=== PATIENT | male | born 1975 | race Caucasian/White ===

== ENCOUNTER 2017-04-10 10:13 | Emergency (ER) | payer OTHER ==
[2017-04-10 10:17] VITALS: BP 132/88; PULSE 74; RESP 16; TEMP 98.6; O2SAT 96
[2017-04-10 11:43] LABS: % IMMATURE GRANULYOCYTES 0.5 % (0.0-1.1); ABSOLUTE IMMATURE GRANULOCYTES 0.06 10^3/uL (0.00-0.10); ADD DIFF? NO; ADD MORPH? NO; ADD SCAN? NO; ATYPICAL LYMPHOCYTE FLAG 0 (0-99); FRAGMENT RBC FLAG 0 (0-99); HEMATOCRIT 47.1 % (40.0-51.0); HEMOGLOBIN 16.1 g/dL (13.7-17.5); LEFT SHIFT FLG 0 (0-99); LIPEMIA HEMOLYSIS FLAG 90 (0-99); MEAN CELL HEMOGLOBIN 29.5 pg (27.9-34.1); MEAN CELL HEMOGLOBIN CONCENTR. 34.2 g/dL (32.4-36.7); MEAN CELL VOLUME 86.3 fL (81.5-99.8); MEAN PLATELET VOLUME 12.3 fL (8.7-11.7); PLATELET CLUMPS FLAG 20 (0-99); PLATELET COUNT 214 10^3/uL (150-400); RED BLOOD CELL COUNT 5.46 10^6/uL (4.40-6.38); RED CELL DISTRIBUTION WIDTH 13.3 % (11.5-15.2)
[2017-04-10 11:53] LABS: COLOR YELLOW; LEUKOCYTE ESTERASE,URINE NEGATIVE (NEGATIVE); NITRITE,URINE NEGATIVE (NEGATIVE)
[2017-04-10 11:59] LABS: ANION GAP 14 mEq/L (8-16); CALCIUM 9.5 mg/dL (8.5-10.4); CARBON DIOXIDE 23 mEq/l (22-31); CHLORIDE 106 mEq/L (97-110); CREATININE 0.9 mg/dL (0.7-1.3); GLOMERULAR FILTRATION RATE > 60; GLUCOSE 93 mg/dL (70-100); POTASSIUM 4.1 mEq/L (3.5-5.2); SODIUM 143 mEq/L (134-144)
--- NOTE | 2017-04-10 13:02 | EDPHY ---
H & P Smoking Status: Never smoked Time Seen by Provider: 04/10/17 11:04 HPI/ROS: CHIEF COMPLAINT: Intermittent abdominal cramping HISTORY OF PRESENT ILLNESS: This is a 42-year-old male presenting to the emergency department reports intermittent abdominal cramping x2 days intermittent nausea no vomiting no diarrhea. Patient states onset symptoms maybe 1-2 hours after eating he notice as abdominal tightness, with intermittent nausea. No changes in PO intake, "I know I do not drink a lot of water", states he does have intermittently normal bowel movement, yesterday he did notice "stool somewhat hard". No other complaints REVIEW OF SYSTEMS: Constitutional: No fever, no chills. No changes in PO intake Eyes: No discharge. No blurred vision ENT: No sore throat. Cardiovascular: No chest pain, no palpitations. Respiratory: No cough, no shortness of breath. Gastrointestinal: Intermittent abdominal cramping, nausea. No vomiting Genitourinary: No urinary difficulty Musculoskeletal: No back pain. Skin: No rashes. Neurological: No headache. (Juhi Greene) Physical Exam: General Appearance: Alert, no distress. Eyes: Pupils equal and round no pallor or injection. ENT, Mouth: Mucous membranes moist. Respiratory: There are no retractions, lungs are clear to auscultation. Cardiovascular: Regular rate and rhythm. Gastrointestinal: Abdomen is soft nontender nondistended, no masses, bowel sounds normal. Neurological: No focal deficits Skin: Warm and dry, no rashes. No pallor no diaphoresis Musculoskeletal: Neck is supple nontender. Extremities: symmetrical, full range of motion. (Juhi Greene) Constitutional: Initial Vital Signs Temperature (C) 37 C 04/10/17 10:15 Heart Rate 74 04/10/17 10:15 Respiratory Rate 16 04/10/17 10:15 Blood Pressure 132/88 H 04/10/17 10:15 O2 Sat (%) 96 04/10/17 10:15 O2 Delivery Mode Room Air Allergies/Adverse Reactions: No Known Allergies Allergy (Unverified 04/10/17 10:17) Medical Decision Making ED Course/Re-evaluation: Discussed ED plan of care: CBC, CMP, UA 1245: Discussed x-ray of abdomen rule out constipation. Patient declined at this time. Discussed all labs and urine results. 1300: Patient states that he is feeling much better to go home, he states he has not had any abdominal cramping since he has been here no nausea. Discharge home---> stable, discussed all discharge instructions with patient. I have also given him numbers for primary care clinics to follow up with (Juhi Greene) I did not see this patient while he was in the emergency department. However his care was discussed with the nurse practitioner while the patient was in the department. I agree with treatment plan and management (Lucas Jerry) Differential Diagnosis: Other differential diagnosis considered but not limited to UTI, electrolyte abnormalities, gastroenteritis, constipation and gallstones (Juhi Greene) - Data Points Laboratory Results: Laboratory Results 04/10/17 11:30 04/10/17 11:30 04/10/17 04/10/17 04/10/17 11:30 11:30 11:30 WBC RBC Hgb Hct MCV MCH MCHC RDW Plt Count MPV Neut % (Auto) Lymph % (Auto) [place] % (Auto) Eos % (Auto) Baso % (Auto) Nucleat RBC Rel Count Absolute Neuts (auto) Absolute Lymphs (auto) Absolute Monos (auto) Absolute Eos (auto) Absolute Basos (auto) Absolute Nucleated RBC Immature Gran % Immature Gran # Sodium 143 mEq/L mEq/L (134-144) Potassium 4.1 mEq/L mEq/L (3.5-5.2) Chloride 106 mEq/L mEq/L (97-110) Carbon Dioxide 23 mEq/l mEq/l (22-31) Anion Gap 14 mEq/L mEq/L (8-16) BUN 23 mg/dL mg/dL (7-23) Creatinine 0.9 mg/dL mg/dL (0.7-1.3) Estimated GFR > 60 Glucose 93 mg/dL mg/dL (70-100) Calcium 9.5 mg/dL mg/dL (8.5-10.4) Lipase 44.0 IU/L IU/L (23-300) Urine Color YELLOW Urine Appearance CLEAR Urine pH 5.0 (5.0-7.5) Ur Specific [place] > 1.035 H (1.002-1.030) Urine Protein NEGATIVE (NEGATIVE) Urine Ketones NEGATIVE (NEGATIVE) Urine Blood NEGATIVE (NEGATIVE) Urine Nitrate NEGATIVE (NEGATIVE) Urine Bilirubin NEGATIVE (NEGATIVE) Urine Urobilinogen NEGATIVE EU EU (0.2-1.0) Ur Leukocyte Esterase NEGATIVE (NEGATIVE) Urine Glucose NEGATIVE (NEGATIVE) 04/10/17 11:30 WBC 13.27 10^3/uL H 10^3/uL (3.80-9.50) RBC 5.46 10^6/uL 10^6/uL (4.40-6.38) Hgb 16.1 g/dL g/dL (13.7-17.5) Hct 47.1 % % (40.0-51.0) MCV 86.3 fL fL (81.5-99.8) MCH 29.5 pg pg (27.9-34.1) MCHC 34.2 g/dL g/dL (32.4-36.7) RDW 13.3 % % (11.5-15.2) Plt Count 214 10^3/uL 10^3/uL (150-400) MPV 12.3 fL H fL (8.7-11.7) Neut % (Auto) 73.0 % % (39.3-74.2) Lymph % (Auto) 16.4 % % (15.0-45.0) [place] % (Auto) 8.6 % % (4.5-13.0) Eos % (Auto) 1.1 % % (0.6-7.6) Baso % (Auto) 0.4 % % (0.3-1.7) Nucleat RBC Rel Count 0.0 % % (0.0-0.2) Absolute Neuts (auto) 9.71 10^3/uL H 10^3/uL (1.70-6.50) Absolute Lymphs (auto) 2.17 10^3/uL 10^3/uL (1.00-3.00) Absolute Monos (auto) 1.14 10^3/uL H 10^3/uL (0.30-0.80) Absolute Eos (auto) 0.14 10^3/uL 10^3/uL (0.03-0.40) Absolute Basos (auto) 0.05 10^3/uL 10^3/uL (0.02-0.10) Absolute Nucleated RBC 0.00 10^3/uL 10^3/uL (0-0.01) Immature Gran % 0.5 % % (0.0-1.1) Immature Gran # 0.06 10^3/uL 10^3/uL (0.00-0.10) Sodium Potassium Chloride Carbon Dioxide Anion Gap BUN Creatinine Estimated GFR Glucose Calcium Lipase Urine Color Urine Appearance Urine pH Ur Specific [place] Urine Protein Urine Ketones Urine Blood Urine Nitrate Urine Bilirubin Urine Urobilinogen Ur Leukocyte Esterase Urine Glucose Departure - Departure Disposition: Home, Routine, Self-Care Clinical Impression: Abdominal pain Qualifiers: Abdominal location: generalized Qualified Code(s): R10.84 - Generalized abdominal pain Condition: Good Instructions: Constipation (ED), High Fiber Diet (ED), Abdominal Pain (ED) Additional Instructions: 1. I have given you information on high-fiber diet, and constipation 2. Increase fluid intake 3. Ibuprofen 600 mg every 6-8 hours as needed 4. If any symptoms worsen projectile vomiting, diarrhea, unable to have a bowel movement abdominal distention return to the ER Referrals: NONE *PRIMARY CARE P,. [Primary Care Provider] - As per Instructions [facility],. [Clinic] - As per Instructions Siva Mendoza DO [Medical Doctor] - As per Instructions Di Vang MD [Medical Doctor] - As per Instructions
== END 2017-04-10 13:20 | disposition home or self-care (01) ==
DX: R10.84 Generalized abdominal pain (principal)